=== PATIENT | male | born 1975 | race Caucasian/White ===

== ENCOUNTER 2016-07-23 19:30 | Emergency (ER) | payer OTHER ==
[2016-07-23 22:53] LABS: ABSOLUTE NEUTROPHIL COUNT 11.6 K/mm3 (1.8-7.7); BASO % 0.3 % (0.2-1.0); EOS % 0.2 % (0.9-2.9); HEMATOCRIT 45.4 % (32.0-52.0); HEMOGLOBIN 16.3 gm/l (14.0-18.0); IMM NEUT # 0.1 K/mm3 (0-0.2); IMM NEUT% 0.4 % (0-1); LYMPH # 1.5 (1.0-4.8); LYMPH % 10.7 % (15-45); MEAN CELL VOLUME 86.5 fl (80.0-94.0); MEAN CORPUSCULAR HGB CONC 35.9 g/dl (33.0-37.0); MEAN PLATELET VOLUME 10.2 fl (7.4-10.4); MONO # 0.6 (0.0-0.8); MONO % 4.6 % (4-12); NEUT % 83.8 % (43-75); PLATELET COUNT 214 K/mm3 (130-400); RED CELL DISTRIBUTION WIDTH 11.4 % (11.5-14.5)
[2016-07-23 23:13] LABS: ALBUMIN 4.7 gm/dL (3.5-5.7); CALCIUM 9.7 mg/dL (8.6-10.3)
== END 2016-07-24 00:03 | disposition home or self-care (01) ==
LOC: ED 19:30
DX: F32.9 Major depressive disorder, single episode, unspecified (principal); F10.129 Alcohol abuse with intoxication, unspecified; Y90.5 Blood alcohol level of 100-119 mg/100 ml